=== PATIENT | male | born 1970 | race Caucasian/White ===

== ENCOUNTER 2017-05-14 17:22 | Emergency (ER) | payer MEDICARE ==
[2017-05-14 18:19] LABS: BASOPHILS 0.2 % (0-2); EOSINOPHILS 0.9 % (0-7); HEMATOCRIT 36.8 % (42.0-54.0); HEMOGLOBIN 12.2 g/dL (13.5-17.5); IMMATURE GRANULOCYTES 0.6 % (0-5); LYMPHOCYTES 10.4 % (15-50); MCH 36.4 pg (26.0-34.0); MCHC 33.2 g/dL (31.0-37.0); MCV 109.9 fL (80.0-100.0); MEAN PLATELET VOLUME 9.3 fL (7.4-10.4); MONOCYTES 8.4 % (2-11); NEUTROPHILS 79.5 % (40-80); RBC 3.35 10x6/uL (4.20-6.10); RDW 15.3 % (11.5-14.5); WBC 9.4 10x3/uL (4.8-10.8)
[2017-05-14 18:28] LABS: PLATELET COUNT 375 10x3/uL (130-400)
[2017-05-14 18:37] LABS: ALBUMIN 3.3 g/dL (3.4-5.0); ALKALINE PHOSPHATASE 96 U/L (46-116); ALT (SGPT) 22 U/L (10-68); BILIRUBIN - TOTAL 0.27 mg/dL (0.2-1.3); CALC OSMOLALITY 276 mosm/kg (275-300); CALCIUM 9.5 mg/dL (8.5-10.1); CARBON DIOXIDE 27.2 mmol/L (21.0-32.0); CHLORIDE - SERUM 102 mmol/L (98-107); GLUCOSE 104 mg/dL (74-106); POTASSIUM - SERUM 3.4 mmol/L (3.5-5.1); PROTEIN - SERUM 8.1 g/dL (6.4-8.2); SODIUM 139 mmol/L (136-145); UREA NITROGEN 10 mg/dL (7-18); eGFR NON AFRICAN AMERICAN 86 mL/min (90-120)
[2017-05-14 18:44] LABS: CKMB 0.2 U/L (0.0-3.6); CREATINE KINASE 54 UL (21-232)
[2017-05-14 18:52] LABS: TROPONIN-I < 0.017 ng/mL (0.000-0.060)
== END 2017-05-14 20:05 | disposition home or self-care (01) ==
LOC: D.ER 17:22
PROVIDERS: Family Medicine
DX: C15.9 Malignant neoplasm of esophagus, unspecified (principal); R00.0 Tachycardia, unspecified

== ENCOUNTER 2018-07-22 11:54 | Emergency (ER) | payer MEDICARE ==
[~2018-07-22] VITALS: Ht 193 cm; Wt 65.9 kg
[2018-07-22 11:58] VITALS: BP 117/68; Ht 193 cm; Wt 65.9 kg
[2018-07-22] MEDS ORDERED: GEODON80 MG PO (12:00)
[2018-07-22] MEDS ORDERED: SEROQUEL300 MG PO (12:01)
[2018-07-22 13:03] LABS: BASOPHILS 0.5 % (0-2); EOSINOPHILS 0.3 % (0-7); HEMATOCRIT 39.4 % (42.0-54.0); HEMOGLOBIN 13.8 g/dL (13.5-17.5); IMMATURE GRANULOCYTES 0.2 % (0-5); LYMPHOCYTES 11.5 % (15-50); MCH 35.3 pg (26.0-34.0); MCV 100.8 fL (80.0-100.0); MEAN PLATELET VOLUME 9.7 fL (7.4-10.4); MONOCYTES 9.6 % (2-11); NEUTROPHILS 77.9 % (40-80); RBC 3.91 10x6/uL (4.20-6.10); RDW 13.5 % (11.5-14.5); WBC 6.5 10x3/uL (4.8-10.8)
[2018-07-22 13:05] LABS: PLATELET COUNT 179 10x3/uL (130-400)
[2018-07-22 13:25] LABS: ALBUMIN 3.5 g/dL (3.4-5.0); ALKALINE PHOSPHATASE 102 U/L (46-116); ALT (SGPT) 18 U/L (10-68); BILIRUBIN - TOTAL 0.68 mg/dL (0.2-1.3); CALC OSMOLALITY 280 mosm/kg (275-300); CALCIUM 8.7 mg/dL (8.5-10.1); CARBON DIOXIDE 30.1 mmol/L (21.0-32.0); CHLORIDE - SERUM 102 mmol/L (98-107); CREATININE - SERUM 1.1 mg/dL (0.6-1.3); POTASSIUM - SERUM 3.4 mmol/L (3.5-5.1); PROTEIN - SERUM 7.1 g/dL (6.4-8.2); SODIUM 140 mmol/L (136-145); UREA NITROGEN 25 mg/dL (7-18); eGFR NON AFRICAN AMERICAN 76 mL/min (90-120)
[2018-07-22 13:26] LABS: GLUCOSE 61 mg/dL (74-106)
[2018-07-22 16:30] LABS: UDS - AMPHET POSITIVE QUAL (NEGATIVE); UDS - BARB NEGATIVE QUAL (NEGATIVE); UDS - BENZO NEGATIVE QUAL (NEGATIVE); UDS - COCAINE NEGATIVE QUAL (NEGATIVE); UDS - OPIATE NEGATIVE QUAL (NEGATIVE); UDS - PCP NEGATIVE QUAL (NEGATIVE); UDS - THC NEGATIVE QUAL (NEGATIVE)
[2018-07-22 16:31] LABS: APPEARANCE CLEAR (CLEAR); BILIRUBIN NEGATIVE (NEGATIVE); COLOR YELLOW (YELLOW); EPITHELIAL CELLS NSEEN /hpf (0-5); GLUCOSE NEGATIVE (NEGATIVE); KETONE SMALL mg/dL (NEGATIVE); NITRITE NEGATIVE (NEGATIVE); PROTEIN NEGATIVE (NEGATIVE); RED CELLS - URINE NONE SEEN /hpf (0-5); WHITE CELLS - URINE NSEEN /hpf (0-5)
== END 2018-07-22 17:10 | disposition home or self-care (01) ==
LOC: D.ER 11:54
PROVIDERS: Family Medicine
DX: F15.10 Other stimulant abuse, uncomplicated (principal); Z59.0 Homelessness; F17.200 Nicotine dependence, unspecified, uncomplicated

== ENCOUNTER 2018-09-30 12:44 | Inpatient (IN) | payer MEDICARE, MEDICAID ==
[~2018-09-30] VITALS: Ht 193 cm; Wt 70.1 kg
[~2018-09-30 12:44] MED LIST: GEODON80 MG PO; SEROQUEL300 MG PO
--- NOTE | 2018-09-30 14:00 | NUR ---
PT COOPERATIVE WITH CHANGING INTO SCRUBS AND BAGGING HIS BELONGINGS. PT ALSO PROVIDED URINE SAMPLE THAT WAS SENT TO THE LAB. PATIENT WAS GIVEN A SANDWICH TRAY AND A SODA, VIDEO MONITORING ESTABLISHED, WILL CONTINUE TO MONITOR.
[2018-09-30 14:04] LABS: BASOPHILS 0.1 % (0-2); EOSINOPHILS 0 % (0-7); HEMATOCRIT 37.3 % (42.0-54.0); HEMOGLOBIN 12.6 g/dL (13.5-17.5); IMMATURE GRANULOCYTES 0.3 % (0-5); LYMPHOCYTES 4.2 % (15-50); MCH 34.3 pg (26.0-34.0); MCHC 33.8 g/dL (31.0-37.0); MCV 101.6 fL (80.0-100.0); MEAN PLATELET VOLUME 9.9 fL (7.4-10.4); MONOCYTES 9.9 % (2-11); NEUTROPHILS 85.5 % (40-80); PLATELET COUNT 160 10x3/uL (130-400); RBC 3.67 10x6/uL (4.20-6.10); RDW 14.8 % (11.5-14.5); WBC 15.1 10x3/uL (4.8-10.8)
[2018-09-30 14:22] LABS: ALBUMIN 3.6 g/dL (3.4-5.0); ALKALINE PHOSPHATASE 83 U/L (46-116); ALT (SGPT) 24 U/L (10-68); CALC OSMOLALITY 283 mosm/kg (275-300); CALCIUM 8.9 mg/dL (8.5-10.1); CHLORIDE - SERUM 104 mmol/L (98-107); MAGNESIUM - SERUM 1.8 mg/dL (1.8-2.4); POTASSIUM - SERUM 3.9 mmol/L (3.5-5.1); PROTEIN - SERUM 7.6 g/dL (6.4-8.2); SODIUM 141 mmol/L (136-145); UREA NITROGEN 20 mg/dL (7-18); eGFR NON AFRICAN AMERICAN 85 mL/min (90-120)
[2018-09-30 14:22] LABS: APPEARANCE CLEAR (CLEAR); BILIRUBIN NEGATIVE (NEGATIVE); COLOR YELLOW (YELLOW); GLUCOSE NEGATIVE (NEGATIVE); KETONE MODERATE mg/dL (NEGATIVE); NITRITE NEGATIVE (NEGATIVE); PROTEIN NEGATIVE (NEGATIVE); UROBILINOGEN NORMAL (NORMAL)
[2018-09-30 14:23] LABS: UDS - AMPHET NEGATIVE QUAL (NEGATIVE); UDS - BARB NEGATIVE QUAL (NEGATIVE); UDS - BENZO NEGATIVE QUAL (NEGATIVE); UDS - COCAINE NEGATIVE QUAL (NEGATIVE); UDS - OPIATE NEGATIVE QUAL (NEGATIVE); UDS - PCP NEGATIVE QUAL (NEGATIVE); UDS - THC NEGATIVE QUAL (NEGATIVE)
[2018-09-30 14:24] LABS: BACTERIA FEW /hpf (NONE SEEN); EPITHELIAL CELLS 0-5 /hpf (0-5); HYALINE CAST 0-5 /lpf (NONE SEEN); MUCUS >1+ /lpf (NONE SEEN); WHITE CELLS - URINE 0-5 /hpf (0-5)
[2018-09-30 14:26] LABS: GLUCOSE 100 mg/dL (74-106)
--- NOTE | 2018-09-30 15:00 | NUR ---
PT PACING IN ROOM AT THIS TIME, REQUESTS TO HAVE TELEVISION TURNED ON WHICH WAS DONE FOR THE PATIENT, WILL CONTINUE TO MONITOR.
[2018-09-30 19:00] VITALS: BP 114/65
[2018-09-30 19:30] VITALS: BP 110/66; BMI 18.5
--- NOTE | 2018-09-30 19:53 | NUR ---
PT ARRIVES TO UNIT AT 1857 VIA WHEELCHAIR WITH ER NURSE. PT AMBULATES TO BED APPROXIMATELY 10FT WITHOUT DIFFICULTY. PT FOLLOWS COMMANDS. PT ON MONITOR WITH 109HR, 110/66B/P, 100.2 TEMP, RESP 18, SPO2 97% ON RM AIR. PT SHIVERING AND GIVEN A BLANKET AND COVERED LEGS ONLY. HISTORY COMPLETED WITH PT ANSWERING APPROPRIATELY AT BEGINNING AND BEGAN TO BE HESITANT WITH ANSWERS. PT ALSO BEGINNING TO LOOK OUT TO NURSES STATION AND POINT AND MOUTH LIKE HE IS MAD AND YELLING AT THEM EVEN WITH NO ONE OUT THERE. COMPLAINS OF PAIN TO IV WITH RATE OF INFUSION SLOWED WITH NO OTHER COMPLAINTS, AT THIS TIME. WILL CONTINUE TO OBSERVE.
[2018-09-30 20:00] VITALS: BP 110/66; BP 111/63
[2018-09-30 21:00] VITALS: BP 92/60
--- NOTE | 2018-09-30 21:19 | NUR ---
RICHIE MONROY APN PAGED AND RETURNED CALL, SHE WAS UPDATED ON PT AND INFORMED OF TEMP OF 100.2 AND RECEIVED ORDERS FOR ACETAMINAPHINE 500MG Q6H PRN. ORDERS PLACED INTO [employer].
--- NOTE | 2018-09-30 21:27 | NUR ---
PT STATES THAT HE HAS DIFFICULTY SWALLOWING AT TIMES. HE DID RECEIVE ONE TYLENOL 500MG WITHOUT DIFFICULTY. WILL CONTINUE TO OBSERVE.
--- NOTE | 2018-09-30 21:49 | NUR ---
IV ABX COMPLETED LEFT FOREARM IV SALINE LOCKED AND LINE SECURED WITH TAPE AND SWABCAPPED. CALL LIGHT IN REACH. WILL CONTINUE TO OBSERVE.
[2018-09-30 22:00] VITALS: BP 110/66; BP 112/67
--- NOTE | 2018-09-30 22:44 | NUR ---
PT UP TO SIT ON SIDE OF BED AND DID NOT ATTEMPT TO STAND X2. PT STATES HE IS HUNGRY AND SANDWICH GIVEN WITH SODA. BED ALARM ON. TEMP 99.1 . WILL CONTINUE TO OBSERVE.
[2018-09-30 23:00] VITALS: BP 120/70
--- NOTE | 2018-09-30 23:43 | NUR ---
PT REQUEST THAT B/P CUFF BE REMOVED AND WAS. READING BEEN WNL AND NOT RECEIVING ANY FLUIDS. REASSESSMENT COMPLETED, SEE FLOW SHEET. CALL LIGHT IN REACH. WILL CONTINUE TO OBSERVE.
[2018-10-01] VITALS (23 sets, daily range): BP systolic 68–113; BP diastolic 33–73
--- NOTE | 2018-10-01 01:14 | NUR ---
PT WANTING HIS HOME MEDICATIONS, [facility] CALL LINE USED TO PAGE DR JESUS. RICHIE MONROY APN RETURNED CALL. STATES PT NEEDS TO BE SEEN BY AND FIND LAST TIME PRESCRIPTION WAS FILLED. PHARMACY CLOSED AT THIS TIME. WILL REPORT TO ONCOMING STAFF.
--- NOTE | 2018-10-01 03:25 | NUR ---
REASSESSMENT COMPLETED, SEE FLOW SHEET. NO CHANGES NOTED. WILL CONTINUE TO OBSERVE.
--- NOTE | 2018-10-01 05:29 | NUR ---
PT RESTING WITH EYES CLOSED AND CHEST RISING. WILL CONTINUE TO OBSERVE
--- NOTE | 2018-10-01 05:52 | NUR ---
DR GUTIERREZ AT BEDSIDE AT 0245,
--- NOTE | 2018-10-01 06:41 | NUR ---
LAB NOTIFIED THAT PRBC INFUSION COMPLETED AND READY FOR LAB DRAW. WILL CONTINUE TO OBSERVE
--- NOTE | 2018-10-01 08:14 | NUR ---
PATIENT ASLEEP RESP DEEP AND REGULAR. NURSING HOME CALLED REGARDING CONSULT. ORDER AND FACE SHEET FAX TO NURSING HOME FOR PSYCH CONSULT. PATIENT NOT AWAKEN AT THIS TIME.
--- NOTE | 2018-10-01 08:33 | NUR ---
AWAKE FOR LAB DRAWN. ASSESSMENT DONE. COOPERATIVE RIGHT NOW. BREAKFAST SERVED
--- NOTE | 2018-10-01 08:54 | NUR ---
PATIENT STATES HE IS SWALLOWING BETTER THIS AM, EATING BREAKFAST ACTED LIKE HE WAS HAVING SOME TROUBLE SWALLOWING BUT DID EAT ALL OF HIS FOOD AND NO PROBLEM WITH DRINKING. WET COUGH. WATCHING TV. BLOOD PRESSURE. DENIES KNOWING WHAT HIS NORMAL BLOOD PRESSURE IS
[2018-10-01 09:01] LABS: BASOPHILS 0.1 % (0-2); EOSINOPHILS 0.4 % (0-7); HEMATOCRIT 32.6 % (42.0-54.0); IMMATURE GRANULOCYTES 0.1 % (0-5); MCH 34.1 pg (26.0-34.0); MCHC 33.7 g/dL (31.0-37.0); MCV 100.9 fL (80.0-100.0); MONOCYTES 10.7 % (2-11); NEUTROPHILS 80.7 % (40-80); PLATELET COUNT 145 10x3/uL (130-400); RBC 3.23 10x6/uL (4.20-6.10); RDW 14.8 % (11.5-14.5)
[2018-10-01 09:06] LABS: CALCIUM 8.1 mg/dL (8.5-10.1); CARBON DIOXIDE 24.8 mmol/L (21.0-32.0); CHLORIDE - SERUM 107 mmol/L (98-107); GLUCOSE 96 mg/dL (74-106); POTASSIUM - SERUM 3.5 mmol/L (3.5-5.1); SODIUM 140 mmol/L (136-145)
[2018-10-01 09:08] LABS: CALC OSMOLALITY 278 mosm/kg (275-300); CREATININE - SERUM 0.7 mg/dL (0.6-1.3); UREA NITROGEN 13 mg/dL (7-18); eGFR NON AFRICAN AMERICAN > 90 mL/min (90-120)
[2018-10-01 09:10] LABS: WBC 8.1 10x3/uL (4.8-10.8)
--- NOTE | 2018-10-01 10:08 | NUR ---
DR. LEYV NOTIFIED OF LOW BLOOD PRESSURE FLUID BOLUS INFUSING. PATIENT STATES HE DOES NOT FEEL GOOD.
--- NOTE | 2018-10-01 11:00 | NUR ---
PATIENT STANDING OUT SIDE OF ROOM DRIPPING BLOOD ALL OVER FLOOR, STATES HE WANTS HIS STUFF SO HE CAN LEAVE. ASKED TO GO BACK INTO HIS ROOM REFUSING TO GO BACK INTO HIS ROOM. DR. LEVY HERE. PATEINT NOT COOPERATIVE, INSIST HE SLEEP OUT IN THE COLD AND HAS NO FOOD. ATE 100% OF BREAKFAST TRAY. AIMEE ARMAS HERE.
--- NOTE | 2018-10-01 11:20 | NUR ---
POLICE DEPARTMENT HERE, RETURNED PATIENT BACK TO HIS ROOM
--- NOTE | 2018-10-01 11:50 | NUR ---
LUNCH TRAY SERVED
--- NOTE | 2018-10-01 12:00 | NUR ---
BLOOD PRESSURE LOW. IV RESTARTED ON RIGHT FOREARM INFUSNG WITH NS AT 100 ML HOUR. AIDE AT DOOR TO MONITOR. PATIENT HAS NURSE CALL LIGHT IN HAND WATCHING TV. COUGHING UP LARGE AMOUNT PALE YELLOW SPUTUM SPITTING ON FLOOR. COOPERATIVE FOR IV. BECOMES VERY UPSET AND THREATING STAFF WHEN WE TRIED TO LOWER HEAD DUE TO LOW BLOOD PRESSURE
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
--- NOTE | 2018-10-01 14:00 | NUR ---
PATIENT VERY AGGITATED WAITING ON PSYCH DOCTOR TO SEE PATIENT BEFORE ANY SEDATION MEDS GIVEN.
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
--- NOTE | 2018-10-01 16:00 | NUR ---
TRAY SERVED ATE WELL. THEN STARTED COUGHING FOOD UP STATES HE IS HAVING PROBLEMS SWALLOWING. SWALLOWING FLUIDS WITHOUT DIFFICULTY
--- NOTE | 2018-10-01 16:33 | NUR ---
4 point leather restraints removed
--- NOTE | 2018-10-01 17:00 | NUR ---
SLEEPING ON RIGHT SIDE. NO RESP DISTRESS NOTED. PULSE OX 94%. GUARD IN ROOM
--- NOTE | 2018-10-01 17:19 | MORECARE ---
CASE MANAGEMENT DISCHARGE SUMMARY PATIENT: ADY HUFF JR UNIT: [id number] ADM DATE: 09/30/18 AGE: 48 : 74 SEX: M ROOM/BED: D.2305 AUTHOR: MARI WELLS PHYSICIAN: REFERRING PHYSICIAN: RIA ONEIL MD DATE OF SERVICE: 10/01/18 Discharge Plan Patient Name[facility] [facility] 1970 Planned Disposition: Anticipated Discharge Date: Discharge Date: Expected LOS: Initial Reviewer: [email or web address] Initial Review Date: 09/30/2018 Generated: 10/01/18 6:19 pm Comments DCP- Discharge Planning Updated by [email or web address]: Rashmi Marlow on 10/01/18 4:[address] CM ATTEMPTED TO DO DISCHARGE PLANNING INTAKE. PATIENT IS COMBATIVE WILL REASSESS AT LATER TIME. CM WILL CONTINUE TO FOLLOW AND ASSIST NEEDED WITH DISCHARGE PLANNING / NEEDS Patient Name: ADY HUFF Page [phone] at 1719 All edits/amendments must be made on the electronic document DICTATION DATE: 10/01/181717 DEVELOPMENT COACH: MERY 10/01/181717 RPT#: [id number] DC DATE: STATUS: ADM IN [address] [place] [address] END OF REPORT
--- NOTE | 2018-10-01 19:22 | NUR ---
CONTINUES TO SLEEP AT THIS TIME NO DISTRESS
--- NOTE | 2018-10-01 19:40 | NUR ---
PT RESTING WITH EYES CLOSED AND CHEST RISING. NO S/S OF DISTRESS. EASILY AROUSED TO LIGHT TOUCH. ASSESSMENT COMPLETED. GUARD AT BEDSIDE. WILL CONTINUE TO OBSERVE.
--- NOTE | 2018-10-01 21:46 | NUR ---
PT RECEIVED SANDWICH WITH SODA AFTER RECEIVING MEDICATIONS PER OCT. PT SHOWED SOME DIFFICULTY SWOLLOWING MEDICATIONS AND CONTINUED WITH SANDWICH. IT APPEARS FOOD HAS DIFFICULTY IN THE AREA AT THE BASE OF NECK, IT IS WHERE PT DEMONSTRATES WHERE HE FEELS FOOD IS STOPPING IN TILL IT PASSES. EAT SANDWICH WITHOUT BREAD MADE EATING EASIER. NO COUGHING AT THIS TIME. WILL CONTINUE TO OBSERVE.
--- NOTE | 2018-10-01 23:35 | NUR ---
PT REASSESSEMENT COMPLETED, SEE FLOW SHEET. PT MORE DIFFICULT TO AWAKEN. B/P LOW WITH CUFF MOVED AND B/P READINGS INCREASED. HR WNL AND SPO2 97% RM AIR. WILL CONTINUE TO OBSERVE.
[2018-10-02] VITALS (21 sets, daily range): BP systolic 90–138; BP diastolic 41–94; BMI 18.5
--- NOTE | 2018-10-02 01:15 | NUR ---
PT WITH EYES CLOSED AND CHEST RISING. AROUSES TO LIGHT TOUCH. B/P WITH SBP>100 AND PT CHANGED POSITIONED AND B/P DECREASED, MAP >60. WILL CONTINUE OBSERVE
--- NOTE | 2018-10-02 03:21 | NUR ---
REASSESSMENT COMPLETED, SEE FLOW SHEET.
[2018-10-02 05:12] LABS: BASOPHILS 0.4 % (0-2); EOSINOPHILS 2.4 % (0-7); HEMATOCRIT 31.4 % (42.0-54.0); HEMOGLOBIN 10.4 g/dL (13.5-17.5); IMMATURE GRANULOCYTES 0.2 % (0-5); LYMPHOCYTES 17.2 % (15-50); MCHC 33.1 g/dL (31.0-37.0); MCV 102.6 fL (80.0-100.0); MEAN PLATELET VOLUME 10.1 fL (7.4-10.4); MONOCYTES 9.7 % (2-11); NEUTROPHILS 70.1 % (40-80); PLATELET COUNT 139 10x3/uL (130-400); RBC 3.06 10x6/uL (4.20-6.10); RDW 14.9 % (11.5-14.5)
[2018-10-02 05:28] LABS: WBC 4.9 10x3/uL (4.8-10.8)
[2018-10-02 05:30] LABS: ALKALINE PHOSPHATASE 54 U/L (46-116); BILIRUBIN - TOTAL 0.31 mg/dL (0.2-1.3); CALC OSMOLALITY 290 mosm/kg (275-300); CALCIUM 7.6 mg/dL (8.5-10.1); CARBON DIOXIDE 24.9 mmol/L (21.0-32.0); CHLORIDE - SERUM 112 mmol/L (98-107); CREATININE - SERUM 0.8 mg/dL (0.6-1.3); GLUCOSE 88 mg/dL (74-106); POTASSIUM - SERUM 3.8 mmol/L (3.5-5.1); SODIUM 147 mmol/L (136-145); UREA NITROGEN 12 mg/dL (7-18); eGFR NON AFRICAN AMERICAN > 90 mL/min (90-120)
[2018-10-02 05:33] LABS: ALBUMIN 2.2 g/dL (3.4-5.0); ALT (SGPT) 17 U/L (10-68); PROTEIN - SERUM 5.5 g/dL (6.4-8.2)
--- NOTE | 2018-10-02 06:22 | NUR ---
PT WITH EYES CLOSED AND CHEST RISING. VSS. WILL CONTINUE TO OBSERVE
--- NOTE | 2018-10-02 09:25 | NUR ---
PT REFUSING HIS PO MEDS THIS AM. OTHERWISE COOPERATIVE. STATES THAT HE WILL ONLY TAKE HIS REG HOME MEDS WHIC IS 300MG SEROQUEL AND 80MG GEODON AT NIGHT NEEDED FOR SLEEP.
--- NOTE | 2018-10-02 11:19 | NUR ---
PT ASKING TO GO OUT WITH MANUFACTURING RECRUITER THAT IS AT BS. SPOKE TO DR LEVY RE: THIS. DR LEVY STATES THAT HE IS NOT TO GO OUT OF THE ROOM. OFFERED MARYCHUY AND CHUCK. PT AGREES TO TAKE. MEDS GIVEN.
--- NOTE | 2018-10-02 12:12 | NUR ---
REC'D TELEPHONE CONCENT FROM PTS SISTER FOR BRONCHOSCOPY. DR LEVY HERE AT BS. REPORTED TEMP 101.0 THIS AM.
--- NOTE | 2018-10-02 12:20 | NUR ---
PT RESTING COMFORTABLY. GUARD AT BS.
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
--- NOTE | 2018-10-02 14:51 | NUR ---
PT PACING AND ASKING FOR A NURSE TO KEEP HIM COMPANY. PT ASKING FOR A RAZOR TO SHAVE WITH. EXPLANED TO PT RE: POLICY. PT CALM. OFFERED ATIVAN FOR HIS ANXIETY. PT AGREES.
--- NOTE | 2018-10-02 17:11 | MORECARE ---
CASE MANAGEMENT DISCHARGE SUMMARY PATIENT: ADY HUFF JR UNIT: [id number] ADM DATE: 09/30/18 AGE: 48 : 74 SEX: M ROOM/BED: D.2305 AUTHOR: MARI WELLS PHYSICIAN: REFERRING PHYSICIAN: RIA ONEIL MD DATE OF SERVICE: 10/02/18 Discharge Plan Patient Name: ADY HUFF [facility] [facility] 1970 Planned Disposition: Anticipated Discharge Date: Discharge Date: Expected LOS: Initial Reviewer: [email or web address] Initial Review Date: 09/30/2018 Generated: 10/02/18 6:11 pm Comments DCP- Discharge Planning Updated by [id number]: Rashmi Marlow on 10/01/18 4:[address] CM ATTEMPTED TO DO DISCHARGE PLANNING INTAKE. PATIENT IS COMBATIVE WILL REASSESS AT LATER TIME. CM WILL CONTINUE TO FOLLOW AND ASSIST NEEDED WITH DISCHARGE PLANNING / NEEDS Last DP export: 10/01/18 4:19 p Patient Name: ADY HUFF Page [phone] at 1711 All edits/amendments must be made on the electronic document DICTATION DATE: 10/02/181710 BASKET TURNER: MERY 10/02/181710 RPT#: [id number] DC DATE: STATUS: ADM IN [facility] [address] [place] [address] END OF REPORT
--- NOTE | 2018-10-02 19:00 | NUR ---
ASSESSMENT COMPLETED. PT WALKING IN ROOM, RESTLESS AND HOSTILE, FOLLOWS COMMANDS. SR ON CM WITH HR 92BPM, LUNG SOUNDS CRACKLES TO ULB, UNLABORED ON RA. PPP. SECURITY REMAINS AT BEDSIDE. CALL LIGHT IN REACH. WILL CONT TO MONITOR.
--- NOTE | 2018-10-02 23:00 | NUR ---
REASSESSMET COMPLETED. NO ACUTE CHANGES NOTED. VSS.
[2018-10-03] VITALS (20 sets, daily range): BP systolic 92–133; BP diastolic 50–88; Ht 193 cm; Wt 70.1 kg
--- NOTE | 2018-10-03 03:00 | NUR ---
REASSESSMENT COMPLETED PER FLOWSHEET. NO ACUTE CHANGED IN PT'S CONDITION AT THIS TIME. CALL LIGHT IN REACH. GUARD REMAINS AT BEDSIDE.
--- NOTE | 2018-10-03 08:19 | NUR ---
BREAKFAST TRAY GIVEN. PT ASKING FOR ATIVAN FOR ANXIETY. ATIVAN GIVEN. PT REFUSING PO MEDS THIS AM. STATES THAT THOSE ARE NOT HIS REG MEDS.
--- NOTE | 2018-10-03 08:53 | NUR ---
RUE IV SITE SLIGHTLY TENDER AND PINK. RESITE COMPLETE TO LUE. 20G X 1 STICK. PT VANDANA WELL.
--- NOTE | 2018-10-03 11:45 | NUR ---
PT ASKING FOR ATIVAN. EXPLANED THAT IT IS TO EARLY. GEODON GIVEN. PT VANDANA WELL.
--- NOTE | 2018-10-03 13:16 | NUR ---
SPOKE TO DR HARMAN ABOUT CONSULT. DR HARMAN IN ICU. DR LEVY HERE.
--- NOTE | 2018-10-03 19:14 | NUR ---
PT CARE RECEIVED - SHIFT ASSESSMENT COMPLETED SEE FLOWSHEET. PT AAOX3 - REQUESTED PRN MEDICATIONS SEE EMAR FOR ADMINISTRATION. VSS CPOC
--- NOTE | 2018-10-03 20:17 | NUR ---
PT RECEIVED COFFEE AND A SANDWICH TRAY PER REQUEST.
--- NOTE | 2018-10-03 20:50 | NUR ---
PT STATED HE ONLY NEEDS SEROQUEL AT THIS TIME
--- NOTE | 2018-10-03 23:15 | NUR ---
REASSESSMENT COMPLETED, NO ACUTE CHAGES, VSS CPOC
[2018-10-04] VITALS (9 sets, daily range): BP systolic 86–117; BP diastolic 42–87
--- NOTE | 2018-10-04 02:28 | NUR ---
PT RESTING COMFORTABLY, EVEN RISE AND FALL OF CHEST O2 SATURATION 98% ON ROOM AIR, VSS CPOC
[2018-10-04 04:07] LABS: BASOPHILS 0.6 % (0-2); EOSINOPHILS 3.1 % (0-7); HEMATOCRIT 33.8 % (42.0-54.0); HEMOGLOBIN 11.4 g/dL (13.5-17.5); IMMATURE GRANULOCYTES 0.6 % (0-5); LYMPHOCYTES 28.4 % (15-50); MCH 34.1 pg (26.0-34.0); MCHC 33.7 g/dL (31.0-37.0); MCV 101.2 fL (80.0-100.0); MEAN PLATELET VOLUME 9.9 fL (7.4-10.4); MONOCYTES 15.6 % (2-11); NEUTROPHILS 51.7 % (40-80); PLATELET COUNT 187 10x3/uL (130-400); RBC 3.34 10x6/uL (4.20-6.10); RDW 14.4 % (11.5-14.5); WBC 3.2 10x3/uL (4.8-10.8)
[2018-10-04 04:15] LABS: CALC OSMOLALITY 285 mosm/kg (275-300); CALCIUM 8.2 mg/dL (8.5-10.1); CARBON DIOXIDE 24.7 mmol/L (21.0-32.0); CHLORIDE - SERUM 107 mmol/L (98-107); CREATININE - SERUM 0.9 mg/dL (0.6-1.3); GLUCOSE 96 mg/dL (74-106); POTASSIUM - SERUM 4.1 mmol/L (3.5-5.1); SODIUM 144 mmol/L (136-145); UREA NITROGEN 10 mg/dL (7-18); eGFR NON AFRICAN AMERICAN > 90 mL/min (90-120)
--- NOTE | 2018-10-04 07:00 | NUR ---
PATIENT NOTIFIED OF POLICY THAN 72 HOUR HOLD TIME DOES APPLY TO WEEKENDS OR . HIS 72 HOUR HOLD WILL BE UP ON SATURDAY. PATIENT VERY ANGRY. PACING FLOOR. REMINDED HIM THAT I WAS JUST THE MESSAGERS, THE POLICY ARE ABOVE ME.
--- NOTE | 2018-10-04 07:20 | NUR ---
PATIENT NOTIFIED NURSE HE HAD CALLED THE POLICE. NOTIFIED THE HOUSE SUPERVISORY AND BINDERY ASSISTANT
--- NOTE | 2018-10-04 07:45 | NUR ---
[facility] POLICE DEPARTMENT ARRIVED. INFORMED PATIENT THAT NO CONTROL OVER HOSPITAL POLICY. REMINDED PATIENT THAT THE NURSES ARE JUST DOING THERE JOB AND HAVE NO CONTROL OVER HOSPITAL POLICY, BUT IF THE NURSE CALL AGAIN ON HIM, HE COULD GO TO [place] IF HE WANTED TOO. PATIENT VERY LOUD AND HOSTILE ACTING. GUARD IN ROOM.
--- NOTE | 2018-10-04 08:42 | NUR ---
PATIENT REFUSED ALL PO MEDS STATES HE DOES NOT LIKE THE WAY THEY MAKE HIM FEEL. ONLY WANTS GEODON AND ATIVAN. AGREED TO NICODERM PATCH.VERY ANGRY HOSTILE ACTING. LOUD VOICE USED WHEN TALKING.
--- NOTE | 2018-10-04 10:00 | NUR ---
SLEEPING RESP DEEP AND REGULAR GUARD IN ROOM
--- NOTE | 2018-10-04 11:30 | NUR ---
LUNCH TRAY SERVED ATE 100%. REQUESTING ATIVAN SO HE CAN SLEEP. INFORMED IT WOULD 2 HOURS BEFORE HE COULD HAVE SOME ATIVAN IV. OFFERED KLONOPIN AND HE AGREE TO TAKE IT. INFORMED HE CAN ONLY GEODON TWICE A DAY AND HE NEEDS TO WAIT UNTIL THIS EVENING, PATIENT DID REQUEST GEODON IM.
--- NOTE | 2018-10-04 13:35 | NUR ---
ON BSC. LARGE FIRM BROWN STOOL. VOIDING WELL. NO DISTRESS. WATCHING TV. STATES HE WANTS A CIGARETTE. PATIENT MUCH CALMER AND SPEAKING IN NORMAL TONES
--- NOTE | 2018-10-04 15:00 | NUR ---
PATIENT REQUESTING NURSE CONSULTING. INFORMED NOT AVAIABLE IN ICU. HE COULD RECEIVED AFTER HE LEAVE ICU. REQUESTING JENNIFER JOYA DECAF PROVIDED.
--- NOTE | 2018-10-04 17:00 | NUR ---
RAMILA SANFORD SERVED. PATIENT REQUESTING COMPANY STATES HE IS LONELY.
--- NOTE | 2018-10-04 18:30 | NUR ---
WATCHING TV. PACING FLOOR IN ROOM. HAS BEEN EXERCISING AT TIMES IN ROOM. DOING PUSH UPS, ETC. SPEAKING IN NORMAL TONES. MORE FRIENDLY AND POLITE THIS AFTERNOON
--- NOTE | 2018-10-04 19:10 | NUR ---
RECEIVED PATIENT CARE - SHIFT ASSESSMENT DEFERRED AT THIS TIME - PATIENT NOT CONNECTED TO ICU MONITORS, PT AGITATED, PACING HIS ROOM, RECEIVED COFFEE PER REQUEST (DECAF) - CPOC
--- NOTE | 2018-10-04 20:19 | NUR ---
PATIENT RECONNECTED TO ICU MONITORS, RESTING COMFORTABLY IN BED - REFUSING DEPAKOTE AT THIS TIME. SEE EMAR FOR MED ADMINISTRATIONS
--- NOTE | 2018-10-04 21:45 | NUR ---
PT RECEIVED PLASTIC SPOON PER REQUEST TO EAT DINNER. REFUSING MONITORS AT THAT TIME
--- NOTE | 2018-10-05 01:37 | NUR ---
PT RESTING COMFORTABLY EVEN RISE AND FALL OF CHEST, REFUSING MONITOR AT THIS TIME
--- NOTE | 2018-10-05 03:15 | NUR ---
PT RESTING COMFORTABLY NO APPARANT DISTRESS, EVEN RISE AND FALL OF CHEST CPOC
--- NOTE | 2018-10-05 05:54 | NUR ---
PT RESTING COMFORTABLY - EVEN RISE AND FALL OF CHEST - NO APPARANT DISTRESS, ROUSES EASILY DENIES NEEDS CPOC
--- NOTE | 2018-10-05 07:00 | NUR ---
UP PACING FLOOR IN ROOM. WANTING MORE COFFEE. NO DISTRESS.
[2018-10-05 08:00] VITALS: BP 102/68
--- NOTE | 2018-10-05 08:00 | NUR ---
BREAKFAST SERVED ATTE 100%. FRESH LINEN, WARM WATER, AND CLEAN SCRUBS PROVIDED. PATIENT BATH SELF AND PUT CLEAN LINEN ON HIS BED.
--- NOTE | 2018-10-05 09:00 | NUR ---
PO MEDS TAKEN REFUSED SEQUEL AND DEPOKOTE. WANTS COFFEE CONSTANTLY. PROVIDING DECAFE COFFEE
--- NOTE | 2018-10-05 11:00 | NUR ---
LUNCH SERVED ATE 100% UP DOWN IN ROOM. PACING REQUESTING COFFEE. ATIVAN GIVEN WITH AM MEDS REQUESTED. IV RESTARTED RIGHT FOREARM X 2 ATTEMPTS.
[2018-10-05 12:00] VITALS: BP 107/65
--- NOTE | 2018-10-05 13:00 | NUR ---
NAPPING ON RIGHT SIDE. RESP DEEP AND REGULAR NO DISTRESS. GUARD IN ROOM
--- NOTE | 2018-10-05 14:25 | NUR ---
ADDITIONAL HAMBURGER AND COFFEE SERVED AT PATIENT REQUEST. STILL ASKING FOR COMPANY AT TIMES.
--- NOTE | 2018-10-05 16:00 | NUR ---
AWAKE STATES HE DOES NOT FEEL GOOD. WANTS SOME GEODON AND ATIVAN. ASSESSMENT DOCUMENTED. LUNGS CLEAR DENEIS ANY PAIN
--- NOTE | 2018-10-05 16:30 | NUR ---
DINNER TRAY SERVED. ATE 100%
--- NOTE | 2018-10-05 17:41 | NUR ---
SLEEPING IN BED RESP DEEP AND REGULAR.
[2018-10-05 19:00] VITALS: BP 86/43
--- NOTE | 2018-10-05 19:22 | NUR ---
RECEIVED PATIENT CARE - SHIFT ASSESSMENT COMPLETED - PATIENT DENIES NEEDS AT THIS TIME VSS CPOC
[2018-10-05 19:41] VITALS: BP 95/70
[2018-10-05 21:00] VITALS: BP 93/52
--- NOTE | 2018-10-05 21:32 | NUR ---
PT REFUSING DEPAKOTE - REQUESTING GEODON - GIVING HS MEDICATIONS NOW SEE EMAR FOR ADMINISTRATION, NOT ADMINISTERING GEODON AT THIS TIME VSS CPOC
--- NOTE | 2018-10-06 00:08 | NUR ---
PATIENT RESTING COMFORTABLY, EVEN RISE AND FALL OF CHEST AUDIBLE SNORING. CPOC
--- NOTE | 2018-10-06 02:49 | NUR ---
REASSESSMENT COMPLETED SEE FLOWSHEET
[2018-10-06 07:00] VITALS: BP 112/61
--- NOTE | 2018-10-06 07:00 | NUR ---
REC'D REPORT AND RESUMED ARE, AAO, DENIES PAIN, STATES HE IS READY TO LEAVE, AWAITING TO SEE MD TO GET PAPERS, ASSESSMENT COMPLETED PER FLOWSHEET, COFFE TO BEDSIDE
--- NOTE | 2018-10-06 07:30 | NUR ---
BREAKFAST TO BEDSIDE, INDEPENDENT WITH SET UP AND EATING
--- NOTE | 2018-10-06 07:45 | NUR ---
CALLED TO BEDSIDE, LARGE CUP OF COFFEE GIVEN PER REQUEST
--- NOTE | 2018-10-06 08:05 | NUR ---
CALLED TO ROOM, LARGE CUP OF COFFEE GIVEN PER REQUEST
--- NOTE | 2018-10-06 09:30 | NUR ---
CALLED TO ROOM, LARGE CUP OF COFFEE GIVEN PER REQUEST
--- NOTE | 2018-10-06 09:45 | NUR ---
MORNING MEDS INTIATED PER OCT, PATIENT REFUSED KLONIPIN, SEROQUEL, AND DEPAKOTE STATEING HE WANT TO KEEP HIS MIND CLEAR FOR WHEN THE DOCTOR COMES
--- NOTE | 2018-10-06 09:47 | NUR ---
Nutrition follow-up: Pt pacing in room. Diet: Low sodium PO intake 100% of all meals, snacks; pt requesting second tray and snacks all day long. Labs reviewed Wt: 154# Pt meeting estimated energy needs at this time. RDN following.
--- NOTE | 2018-10-06 10:15 | NUR ---
CALLED TO ROOM, LARGE CUP OF COFFEE GIVEN PER REQUEST
--- NOTE | 2018-10-06 10:35 | NUR ---
IN ROOM PRONE ON FLOOR, DOING PUSH UPS, STATES HIS MUSCLES ARE SORE AND HE HAS TO DO SOMETHING
--- NOTE | 2018-10-06 10:55 | NUR ---
QUIETLY PACING IN ROOM, HITTING HANDS TOGETHER, GUARD AT BEDSIDE.
--- NOTE | 2018-10-06 11:52 | NUR ---
LUNCH TRAY TO BEDSIDE, WALKING AND EATING, NO OTHER NEEDS AT THIS TIME
--- NOTE | 2018-10-06 14:21 | NUR ---
CASE MANAGEMENT AT BEDSIDE, SHE DISCUSSED POC, PATRIENT MADE THE DECISION TO LEAVE AMA, PAPER WORK SIGNED AND PERSONNEL BELONGINGS RETURNED
--- NOTE | 2018-10-06 18:47 | MORECARE ---
CASE MANAGEMENT DISCHARGE SUMMARY PATIENT: ADY HUFF JR UNIT: [id number] ADM DATE: 09/30/18 AGE: 48 : 74 SEX: M ROOM/BED: D.2305 AUTHOR: MARI WELLS PHYSICIAN: REFERRING PHYSICIAN: RIA ONEIL MD DATE OF SERVICE: 10/06/18 Discharge Plan Patient Name: ADY HUFF Facility: [facility]:[place] : 1970 Planned Disposition: Anticipated Discharge Date: Discharge Date: 10/06/2018 Expected LOS: Initial Reviewer: [email or web address] Initial Review Date: 09/30/2018 Generated: 10/06/18 7:47 pm Comments DCP- Discharge Planning Updated by [email or web address]: Rashmi Marlow on 10/01/18 4:[address] CM ATTEMPTED TO DO DISCHARGE PLANNING INTAKE. PATIENT IS COMBATIVE WILL REASSESS AT LATER TIME. CM WILL CONTINUE TO FOLLOW AND ASSIST NEEDED WITH DISCHARGE PLANNING / NEEDS Last DP export: 10/02/18 4:11 p Patient Name: ADY HUFF Page [phone] at 1847 All edits/amendments must be made on the electronic document DICTATION DATE: 10/06/181846 BEEF GRADER: EMRY 10/06/181846 RPT#: [id number] DC DATE:10/06/18 STATUS: DIS IN [facility] [address] [place] [address] END OF REPORT
== END 2018-10-06 15:00 | disposition left against medical advice (07) | DRG 178 ==
LOC: D.ER 12:44 → D.ICU 18:04 → D.EDHOLD 18:04 → D.ICU 18:22
PROVIDERS: Emergency Medicine; Family Medicine; ADMIT Family Medicine Adult Medicine; ATTEND Family Medicine Adult Medicine
DX: J69.0 Pneumonitis due to inhalation of food and vomit (principal); R45.851 Suicidal ideations; Z68.1 Body mass index [BMI] 19.9 or less, adult; E44.0 Moderate protein-calorie malnutrition; F25.9 Schizoaffective disorder, unspecified; F60.2 Antisocial personality disorder; F15.10 Other stimulant abuse, uncomplicated; F17.200 Nicotine dependence, unspecified, uncomplicated; Z59.0 Homelessness; G47.00 Insomnia, unspecified; Z78.1 Physical restraint status; D64.9 Anemia, unspecified; D72.819 Decreased white blood cell count, unspecified; R45.1 Restlessness and agitation